=== PATIENT | female | born 1990 | race Caucasian/White ===

== ENCOUNTER 2018-09-10 06:00 | Inpatient (IN) ==
[2018-09-10] MEDS ORDERED: *HR* Nalbuphine 10 MG/ML AMPUL IVP PRN (06:05)
[2018-09-10] MEDS ORDERED: Naloxone 0.4 MG/ML INJ IVP PRN (06:05)
[2018-09-10] MEDS ORDERED: Metoclopramide 10 MG/2 ML VIAL IVP PRN ×2 (06:05→14:36)
[2018-09-10] MEDS ORDERED: Famotidine 20 MG/2 ML VIAL IVP PRN (06:05)
[2018-09-10] MEDS ORDERED: Ondansetron 4 MG/2 ML VIAL IVP PRN ×2 (06:05→14:36)
[2018-09-10] MEDS ORDERED: Ringers Solution, Lactated 1,000 ML IVC SCH (06:15)
[2018-09-10] MEDS ORDERED: Oxytocin 20 units/ LR 1000 mL 20 UNIT/1,000 ML BAG IVC SCH ×3 (06:30→22:45)
[2018-09-10 06:44] LABS: Basophils % 0.4 %; Eosinophils # 0.1 K/mcL (0.0-0.6); Eosinophils % 1.2 %; Hematocrit 32.8 % (35.3-44.9); Hemoglobin 10.4 g/dL (11.5-15.4); Immature Granulocytes % 0.8 % (0-4); Lymphocytes # 1.9 K/mcL (0.6-4.6); Lymphocytes % 20.7 %; Mean Corpuscular HGB Conc 31.7 g/dL (31.6-35.5); Mean Corpuscular Hemoglobin 24.8 pg (28.0-33.3); Mean Corpuscular Volume 78.3 fL (83.0-100.0); Mean Platelet Volume 9.5 fL (9.4-12.4); Monocytes # 0.5 K/mcL (0.0-1.3); Monocytes % 5.6 %; Neutrophils # 6.4 K/mcL (1.6-8.9); Platelet Count 296 K/mcL (140-400); Red Blood Count 4.19 M/mcL (3.82-4.97); Red Cell Distribution Width 14.1 % (11.5-14.5); Segmented Neutrophils % 71.3 %
[2018-09-10 06:51] LABS: Amphetamine Screen,Urine Negative ng/mL (Cutoff=1000); Barbiturate Screen,Urine Negative ng/mL (Cutoff=200)
[2018-09-10 06:52] LABS: Benzodiazepines Screen,Urine Negative ng/mL (Cutoff=300); Cannabinoid Screen,Urine Negative ng/mL (Cutoff = 50); Cocaine Screen,Urine Negative ng/mL (Cutoff= 300); Opiate Screen,Urine Negative ng/mL (Cutoff=300); Phencyclidine Screen,Urine Negative ng/mL (Cutoff=25)
--- NOTE | 2018-09-10 07:32 | OB/GYN History & Physical ---
Date of Encounter: 09/10/18 Time of Encounter: 07:30 Assessment and Plan (1) 39 weeks gestation of Current visit: Yes Status: Acute (2) Elective induction of labor planned Current visit: Yes Status: Acute History of Present Illness Chief complaint: induction HPI: Ms. Kaminski is a 28 year old female who presents today for induction of labor at 39 weeks and 4 days. She is doing well. She is having no complaints of any kind today. On examination she is 1 cm 50% effaced and -2 station. is vertex. She denies any other complaints. She has allergies to erythromycin which causes anaphylaxis. She is currently on vitamins. She has no chronic medical conditions. Surgical history is negative. She has no history of abnormal Pap smears, STDs or pelvic infections. Socially she denies tobacco, alcohol, drug use. Obstetric history significant for one term vaginal delivery uncomplicated. Family history is significant for diabetes, hypothyroidism, hypertension. And heart disease Past Med Surg Social Fam HX - Past Medical History Medical history: no medical history Psychiatric history: no psych history - Past Surgical History Surgical History: no surgical history - Social History Smoking Status: Never smoker Smokeless Tobacco Status: No Alcohol use: none Drug use: none - Family History Mother Living Status: Still Living Obstetrical History - Pregnancies : 2 Para: 1 Livin Medications and Allergies Ferrous Gluconate 324 mg PO DAILY 09/10/18 [History] Vits96/Iron Fum/Folic [ Tablet] 1 each PO DAILY 09/10/18 [History] Allergy/AdvReac Type Severity Reaction Status Date / Time Erythromycin Base Allergy Anaphylaxis Verified 09/10/18 06:15 Review of System OB All systems PM: reviewed and no additional remarkable complaints except as stated Exam - Constitutional Constitutional: well developed, well nourished, no acute distress, average body habitus - HEENT HEENT: EOMI, PERRL - Neck Neck exam: full ROM - Lungs Respiratory exam: CTAB - Cardiovascular Cardiovascular exam: RRR - Abdomen Abdomen: Present: bowel sounds normal, gravid, non tender - Extremities Extremities exam: full ROM - Vagina Vagina: Present: normal moisture - Cervix Dilation: 1 Effacement: 50 Station: -2 - Uterus Uterus exam: Present: normal size Results Result Diagrams: 09/10/18 06:25 09/10/18 06:25 Abnormal lab results Hgb 10.4 g/dL (11.5-15.4) L 09/10/18 06:25 Hct 32.8 % (35.3-44.9) L 09/10/18 06:25 MCV 78.3 fL (83.0-100.0) L 09/10/18 06:25 MCH 24.8 pg (28.0-33.3) L 09/10/18 06:25 All other labs normal. - VTE Reasons for not Prescribing Prophylaxis: Treatment not Indicated - Low risk for VTE
--- NOTE | 2018-09-10 08:51 | Anesthesia Evaluation PreOp ---
Date of Encounter: 09/10/18 Time of Encounter: 08:29 - Past History Planned Operation: labor epidural Cardiac History: Denies any Significant Hx Pulmonary History: Denies Any Significant HX FACILITY ENVIRONMENTAL TECHNICIAN History: Denies Any Significant HX Other Medical History: Other (Gestational diabetes this , diet controlled. MO: BMI 43.) Anesthesia History: No Prior Anesthetic Complications, Past Anesthesia (Sedation for wisdom teeth extraction, no problems. Never had GA. Had previous epidural X1 without problems. No FHAP.) : Yes Alcohol Use: none Drug use: none Medications and Allergies Ferrous Gluconate 324 mg PO DAILY 09/10/18 [History] Vits96/Iron Fum/Folic [ Tablet] 1 each PO DAILY 09/10/18 [History] Allergy/AdvReac Type Severity Reaction Status Date / Time Erythromycin Base Allergy Anaphylaxis Verified 09/10/18 06:15 - Meds/Allergy Pre-op Review Medications Reviewed: Yes Allergies Reviewed: Yes Beta Blockers on Current Med List: No Anesthesia Results - Labs 09/10/18 06:25 09/10/18 06:25 Anesthesia Exam 132/82, 76, 20. FHTs 120s. Height: 5'5" Weight: 117kg NPO (# of Hours): >8 Pain Scale: 0 Pain Scale Used: Numeric (1 - 10) - HEENT Pupil (Motor): Pupils equal, EOMI Mallampati: II Teeth: Normal Oral Opening: Greater than 3 - FACILITY ENVIRONMENTAL TECHNICIAN LOC: Oriented FACILITY ENVIRONMENTAL TECHNICIAN Motor: Normal RUE, Normal LUE, Normal RLE, Normal LLE, Normal Face FACILITY ENVIRONMENTAL TECHNICIAN Sensory: Normal: RUE, LUE, RLE, LLE, Face - Cardiac Rhythm: Regular - Pulmonary Breath Sounds: bilateral Clear Respiratory Effort: Symmetrical Anesthesia Assess/Plan ASA Score: 3 (MO BMI 43) Level of consciousness: Cooperative, Oriented, Tranquil Monitoring Plan: Standard Monitors
[2018-09-10] MEDS ORDERED: Epidural Premix (fent/bupiv) 110 ML EP SCH (09:00)
[2018-09-10] MEDS ORDERED: Acetaminophen 325 MG TABLET PO PRN ×2 (11:05→22:45)
[2018-09-10] MEDS ORDERED: *HR* FentaNYL (PF) 100 MCG/2 ML VIAL ONE (12:57)
[2018-09-10] MEDS ORDERED: Lidocaine -MPF 2% 5 ML VIAL ONE (12:57)
[2018-09-10] MEDS ORDERED: Bupivacaine-MPF 0.25% 10 ML VIAL ONE (12:57)
[2018-09-10] MEDS ORDERED: Simethicone 80 MG TAB.CHEW PO PRN (14:36)
[2018-09-10] MEDS ORDERED: Sennosides 8.6 MG TABLET PO PRN (14:36)
[2018-09-10] MEDS ORDERED: Ibuprofen 600 MG TABLET PO PRN (14:36)
[2018-09-10] MEDS ORDERED: *HR* OxyCODONE/APAP 5/325 TABLET PO PRN (14:36)
--- NOTE | 2018-09-10 14:52 | OB/GYN Procedure Note ---
Section - Date of procedure: 09/10/18 Preop diagnosis: breech, other (labor) Post-op diagnosis: same Procedure: primary low transverse Surgeon: Pro Oviedo Blood Loss: 550 Was there an visitor service assistant present: Yes Police Pilot: Alyssa Gomez Anesthesiologist: Zane Murry Anesthesia Type: Spinal section complications: none Disposition: Post floor Specimens: Placenta - (s) A Delivery Date: 09/10/18 Delivery Time: 14:07 Presentation: breech, escobar breech Route of delivery: other Gender: Male Viability: Viable Pounds: 7 Ounces: 4 at 1 minute: 9 at 5 minutes: 10 Specimens collected: venous cord gases, arterial cord gases Placenta: partial extraction Cord: 3 umbilical vessels - Narrative Narrative: Patient presented to labor and delivery in labor. Patient changed from closed thick and high to 2 cm and 80%. She was antonia every 2-4 minutes. After informed consent was obtained this patient was taken to the operating room she was given spinal anesthesia. She was then prepped and draped in the usual sterile fashion. Once adequate analgesia was achieved patient was prepped and draped in a Pfannenstiel incision was made. It was carried sharply through the subtenons fatty tissue, until the fascial layers reached. The fascia was then nicked in the midline and incised bilaterally. Scissors. It was then dissected vertically for adequate exposure. Rectus abdominis musculature is and in the midline, and the peritoneum was entered sharply entered. A bladder blade was placed at the inferior margin incision. The bladder flap was developed. Bladder blade was placed over the bladder flap. A low transverse incision was then made in the lower uterine segment. Fluid was noted be clear. The infant was found to be in escobar breech presentation. The was then delivered with minimal difficulty. Infant cried immediately upon delivery. The cord was clamped cut. The and was then passed to NICU team in attendance. Cord blood was obtained. The placenta was then delivered via uterine massage and lavage. Uterine lavage was then performed. Uterus is delivered. The incision was then closed with 0 Vicryl suture running locking fashion. 2 [id number]'s were placed for final hemostasis. The uterus was replaced the pelvic cavity. Pelvic cavity was rinsed thoroughly. Seeing no bleeding, the procedure was terminated. Sponge, needle, and instrument count was correct 2. The fascia was then closed with 0 Vicryl suture in a running nonlocking fashion. The suprafascial region was rinsed thoroughly with sterile water 2, all bleeders were then cauterized. The skin was closed jose. Patient tolerated the procedure well. Estimated blood loss 550 mL. Patient delivered a male . Weight was 7 lbs. 4 oz. with Apgars of 9 at 1 minute and 10 at 5 minutes. was delivered in escobar breech presentation.
--- NOTE | 2018-09-10 15:56 | Anesthesia Procedures ---
Addendum entered and electronically signed by Pili Joe CRNA 09/11/18 04:16: Vaginal delivery @[address] Chapin. Original Note: Date of Encounter: 09/10/18 Time of Encounter: 13:00 Procedures: Anesthesia - Epidural/Spinal Patient ID/Chart reviewed: Yes Patient examined: Yes OB Eval: Gestational age: 39 OB Eval: : 2 OB Eval: Hx Para: 1 OB Eval: Dilated at (cm): 3 OB Eval: Contractions: Non-stressed pattern Consent Obtained: Yes Supplemental Oxygen: None/Room Air Site Prep: Aseptic Technique, Sterile prep and drape, Povidone-Iodine 1% Patient position: upright Local Anesthetic: Lidocaine 1% Amount of Local Anesthetic used: 5 Touhy Needle Gauge: 18 Touhy Needle Depth (cm): 7 Catheter Depth at Skin (cm): 18 Test Dose (1.5% Lido + Epi): Volume given (mls): 3 Test Dose Result: Negative Loading Dose: 0.25% Marcaine (mls): 8 Loading Dose: Fentanyl (mcg): 100 Loading Dose Administered: Thru Catheter Infusion Med: 0.125% Bupivacaine w/ 2 mcg/ml Fentanyl Infusion Rate (mls/hr): [address]: Tegaderm, Tape Interspace Used: L3-L4 Loss of Resistance (JOYCE): Yes Blood: No CSF: No Vitals + FHT's: Vital Signs Time 1300 1314 1315 1320 1325 BP 138/74 153/80 156/82 153/71 145/64 Pulse 99 81 87 71 71 FHTs 140 140 140 140 140
[2018-09-10] MEDS ORDERED: ceFAZolin 1,000 MG in Water for inj. (sterile) 20 ML 10 ML IVP SCH (16:00)
--- NOTE | 2018-09-10 16:51 | OB/GYN Procedure Note ---
Delivery - Delivery Date: 09/10/18 Provider: Pro Chapin Intrapartum events: none Delivery induction: oxytocin Delivery augmentation: pitocin Delivery monitor: external FHT, external uterine, internal uterine Anesthesia: epidural Quantitated Blood Loss: 300 - Infant (s) A Delivery Date: 09/10/18 Delivery Time: 14:07 Presentation: breech, escobar breech Route of delivery: other Gender: Male Viability: Viable Pounds: 8 Ounces: 0 Weight Gram: 3.63 kg at 1 minute: 8 at 5 mins: 9 Specimens collected: venous cord gases, arterial cord gases Placenta: spontaneous, partial extraction Cord: 3 umbilical vessels - Repair Episiotomy: none Laceration Description: None - Complications Delivery complications: none - Disposition Mom disposition: stable in LDR [place] disposition: stable in LDR - Comments Comments: This patient progressed rapidly to complete and pushing at a spontaneous vaginal delivery of a female infant over an intact perineum. Infant's head was in the perineum easily. The rest of the infant was then delivered with out difficulty. The cried immediately upon delivery. Cord was clamped cut. The infant was in past nurse in attendance. Cord blood was obtained. Placenta was delivered spontaneously intact. There are no cervical vaginal, periurethral or perineal lacerations noted. Patient delivered a female weight is 3630 g, 8 lbs. 0 oz. Apgars are 81 minute and 9 at 5 minutes. Estimated blood loss is 300 mL.
[2018-09-10] MEDS ORDERED: Measles/Mumps/Rubella Vacc 0.5 ML VIAL SQ PRN (22:45)
[2018-09-10] MEDS ORDERED: Benzocaine/Menthol 56 GM AEROSOL SPRAY TP PRN (23:20)
[2018-09-11 06:30] LABS: Basophils # 0.1 K/mcL (0.0-0.2); Basophils % 0.4 %; Eosinophils # 0.1 K/mcL (0.0-0.6); Eosinophils % 0.6 %; Hematocrit 31.6 % (35.3-44.9); Hemoglobin 9.9 g/dL (11.5-15.4); Immature Granulocytes % 0.4 % (0-4); Lymphocytes % 15.9 %; Mean Corpuscular HGB Conc 31.3 g/dL (31.6-35.5); Mean Corpuscular Hemoglobin 24.5 pg (28.0-33.3); Mean Corpuscular Volume 78.2 fL (83.0-100.0); Mean Platelet Volume 9.4 fL (9.4-12.4); Monocytes # 0.6 K/mcL (0.0-1.3); Monocytes % 4.5 %; Neutrophils # 9.8 K/mcL (1.6-8.9); Platelet Count 267 K/mcL (140-400); Red Blood Count 4.04 M/mcL (3.82-4.97); Red Cell Distribution Width 14.3 % (11.5-14.5); Segmented Neutrophils % 78.2 %
[2018-09-11] MEDS ORDERED: Prenatal Vit/FA 1 EACH TABLET PO SCH ×2 (09:00)
[2018-09-11 10:48] VITALS: BP 135/83
--- NOTE | 2018-09-11 10:48 | Discharge Summary ---
Date of Encounter: 09/11/18 Time of Encounter: 10:44 - Discharge Diagnosis (1) Vaginal delivery Priority: Primary Status: Acute Comments: Pt meeting all milestones. Anticipate discharge home today if BP's and PIH labs stable. PIH precautions given. (2) Headache Priority: Secondary Status: Acute Comments: Pt with history of preeclampsia . Will get PIH labs this am. Pt desires discharge home if labs and BP remain stable. She does admit a history of migraines for which excedrin helps if taken early. She has also taken imitrex and amytriptaline in the past. Qualifiers: Headache type: unspecified Headache chronicity pattern: episodic headache Intractability: not intractable Qualified Code(s): R51 - Headache (3) History of pre-eclampsia Priority: Secondary Status: Acute (4) History of depression Priority: Secondary Status: Acute Comments: Pt desires discharge home with zoloft - Discharge Medications Prescriptions: New Acetaminophen [Tylenol] 650 mg PO Q6HR PRN tablet PRN Reason: Mild Pain Benzocaine/Menthol [place] [Dermoplast [place]] 1 appl TP QID PRN aerosol PRN Reason: See Comments Docusate [Colace] 100 mg PO BID #30 capsule Sertraline [Zoloft] 25 mg PO DAILY #30 tablet Ibuprofen 800 mg PO Q8HR PRN #30 tablet PRN Reason: Pain Continue Vits96/Iron Fum/Folic [ Tablet] 1 each PO DAILY Discontinued Ferrous Gluconate 324 mg PO DAILY Home Medications: Vits96/Iron Fum/Folic [ Tablet] 1 each PO DAILY 09/10/18 [Histo ry] Acetaminophen [Tylenol] 650 mg PO Q6HR PRN tablet 09/11/18 [Rx] Benzocaine/Menthol [place] [Dermoplast [place]] 1 appl TP QID PRN aerosol 09/11/18 [Rx] Docusate [Colace] 100 mg PO BID #30 capsule 09/11/18 [Rx] Ibuprofen 800 mg PO Q8HR PRN #30 tablet 09/11/18 [Rx] Sertraline [Zoloft] 25 mg PO DAILY #30 tablet 09/11/18 [Rx] Allergies/Adverse Reactions: Allergy/AdvReac Type Severity Reaction Status Date / Time Erythromycin Base Allergy Anaphylaxis Verified 09/10/18 06:15 Data Procedures and tests throughout hospitalization: Laboratory Tests 09/10/18 09/10/18 09/10/18 06:25 06:25 06:25 WBC 9.0 RBC 4.19 Hgb 10.4 L Hct 32.8 L MCV 78.3 L MCH 24.8 L MCHC 31.7 RDW 14.1 Plt Count 296 MPV 9.5 Immature Gran % 0.8 Seg Neutrophils % 71.3 Lymphocytes % 20.7 Monocytes % 5.6 Eosinophils % 1.2 Basophils % 0.4 Neutrophils # 6.4 Lymphocytes # 1.9 Monocytes # 0.5 Eosinophils # 0.1 Basophils # 0.0 Glucose 80 POC Glucose Urine Opiates Screen Negative Ur Barbiturates Screen Negative Ur Phencyclidine Scrn Negative Ur Amphetamines Screen Negative U Benzodiazepines Scrn Negative Urine Cocaine Screen Negative U Marijuana (THC) Screen Negative Ur Drug Screen Interp See Below 09/10/18 09/10/18 09/11/18 09:09 11:10 06:10 WBC 12.5 H RBC 4.04 Hgb 9.9 L Hct 31.6 L MCV 78.2 L MCH 24.5 L MCHC 31.3 L RDW 14.3 Plt Count 267 MPV 9.4 Immature Gran % 0.4 Seg Neutrophils % 78.2 Lymphocytes % 15.9 Monocytes % 4.5 Eosinophils % 0.6 Basophils % 0.4 Neutrophils # 9.8 H Lymphocytes # 2.0 Monocytes # 0.6 Eosinophils # 0.1 Basophils # 0.1 Glucose POC Glucose 75 71 Urine Opiates Screen Ur Barbiturates Screen Ur Phencyclidine Scrn Ur Amphetamines Screen U Benzodiazepines Scrn Urine Cocaine Screen U Marijuana (THC) Screen Ur Drug Screen Interp Labs on day of discharge: Labs from last 24 hours 09/11/18 09/10/18 06:10 11:10 WBC 12.5 H RBC 4.04 Hgb 9.9 L Hct 31.6 L MCV 78.2 L MCH 24.5 L MCHC 31.3 L RDW 14.3 Plt Count 267 MPV 9.4 Immature Gran % 0.4 Seg Neutrophils % 78.2 Lymphocytes % 15.9 Monocytes % 4.5 Eosinophils % 0.6 Basophils % 0.4 Neutrophils # 9.8 H Lymphocytes # 2.0 Monocytes # 0.6 Eosinophils # 0.1 Basophils # 0.1 POC Glucose 71 Date of admission: 09/10/18 06:00 Primary care physician: Floyd Bermeo DO Consults: 09/10/18 22:45 Consult to Stripping Machine Operator [CONS] Routine Comment: Vaginal delivery, consult needed Discharging clinician: Karina Musa Anticipated date of discharge: 09/11/18 - Patient Status Disposition: Home, Self-Care Condition: Good Functional capacity at discharge: independent ambulation Overall status at discharge: patient is progressing back to baseline - Discharge Instructions Follow Up With: Floyd Bermeo DO [Primary Care Provider] - Pro Chapin MD [Partnered Physician] - - Diet and Activity Activity: increase activity as tolerated Diet: regular diet Hospital Course Reason for admission: induction of labor Delivery: Episiotomy: none Laceration: none Other procedures: none complications: none Discharge diagnosis: IUP at term delivered [place] baby: male Hospital course: - Delivery Date: 09/10/18 Provider: Pro Chapin Intrapartum events: none Delivery induction: oxytocin Delivery augmentation: pitocin Delivery monitor: external FHT, external uterine, internal uterine Anesthesia: epidural Quantitated Blood Loss: 300 - (s) A Delivery Date: 09/10/18 Delivery Time: 14:07 Presentation: breech, escobar breech Route of delivery: other Gender: Male Viability: Viable Pounds: 8 Ounces: 0 Weight Gram: 3.63 kg at 1 minute: 8 at 5 mins: 9 Specimens collected: venous cord gases, arterial cord gases Placenta: spontaneous, partial extraction Cord: 3 umbilical vessels - Repair Episiotomy: none Laceration Description: None - Complications Delivery complications: none - Disposition Mom disposition: home PPD 1 disposition: home with mother, bottle feeding pumped breast milk Time Attestation: Total time spent providing and/or coordinating discharge services: Time Spent: Less than 30 minutes Exam - Constitutional Vitals: Temp Pulse Resp BP Pulse Ox 97.9 F 90 16 125/79 98 09/11/18 04:25 09/11/18 04:25 09/11/18 04:25 09/11/18 04:25 09/11/18 04:25 General appearance IM: A&O X 3 - Respiratory Respiratory exam: Present: CTAB - Cardiovascular Cardiovascular exam IM: Present: RRR, +S1, +S2 - GI/Abdominal GI/Abdominal exam IM: soft, no peritoneal signs - External exam: normal external exam Uterine Tone: Firm Uterus Position: 1 Finger Below Umbilicus - Extremities Exam Extremities exam IM: Present: pedal edema (2+ bilaterally to knees, no erythema or warmth) - Neurological Exam Neurological exam: normal gait, oriented X3 - Psychiatric Additional comments: reports good mood today but has a history of PPD
[2018-09-11] MEDS ORDERED: Acetaminophen/Aspirin/Caffeine TABLET PO ONE (11:00)
[2018-09-11 11:06] LABS: Basophils % 0.3 %; Eosinophils # 0.1 K/mcL (0.0-0.6); Eosinophils % 0.4 %; Hematocrit 30.4 % (35.3-44.9); Hemoglobin 9.5 g/dL (11.5-15.4); Immature Granulocytes % 0.5 % (0-4); Lymphocytes # 1.8 K/mcL (0.6-4.6); Lymphocytes % 15.1 %; Mean Corpuscular HGB Conc 31.3 g/dL (31.6-35.5); Mean Corpuscular Hemoglobin 24.4 pg (28.0-33.3); Mean Corpuscular Volume 77.9 fL (83.0-100.0); Mean Platelet Volume 9.6 fL (9.4-12.4); Monocytes # 0.5 K/mcL (0.0-1.3); Monocytes % 4.3 %; Neutrophils # 9.3 K/mcL (1.6-8.9); Platelet Count 280 K/mcL (140-400); Red Cell Distribution Width 14.3 % (11.5-14.5); Segmented Neutrophils % 79.4 %
[2018-09-11 11:24] LABS: Alanine Aminotransferase 9 Units/L (7-52); Aspartate Amino Transferase 15 Units/L (13-39); BUN/Creatinine Ratio 10 (6-26); Blood Urea Nitrogen 6 mg/dL (6-20); Lactate Dehydrogenase 203 Units/L (140-271); Uric Acid 3.7 mg/dL (2.3-7.6); eGFR For Non-African Americans > 60 (> 60)
== END 2018-09-11 18:00 | disposition home or self-care (01) | DRG 788 ==
LOC: 1NENULAB 06:00 → 1NENUOBS 20:09
PROVIDERS: ADMIT Obstetrics & Gynecology; ATTEND Obstetrics & Gynecology